=== PATIENT | female | born 1975 | race Two or more races ===

== ENCOUNTER 2025-02-27 15:10 | Emergency (ER) | payer OTHER ==
[~2025-02-27] VITALS: Ht 154.9 cm; Wt 77.1 kg
[2025-02-27 15:36] VITALS: BP 126/84; O2SAT 99
[2025-02-27] MEDS ORDERED: KETOROLAC TROMETHAMINE 60 MG VIAL IM ONE (16:30)
[2025-02-27 16:51] LABS: BASO % 0.5 % (0.1-1.2); EOS # 0.14 (0.04-0.54); EOS % 1.8 % (0.7-7.0); LYMPH # 3.36 (1.18-3.74); LYMPH % 43.0 % (19.3-53.1); MEAN PLATELET VOLUME 11.40 fl (9.4-12.4); MONO # 0.45 (0.24-0.82); MONO % 5.8 % (4.7-12.5); NEUT # 3.81 (1.56-6.13); NEUT % 48.6 % (34.0-71.1); RED CELL DISTRIBUTION WIDTH 14.2 % (11.6-14.4)
[2025-02-27 17:12] LABS: COVID-19 AG NEGATIVE (NEGATIVE)
[2025-02-27 17:28] LABS: ALT/SGPT 31.0 U/L (12-78); AST/SGOT 17.0 U/L (15-37); BILIRUBIN TOTAL 0.55 mg/dL (0.3-1.2); BUN CREA RATIO 17.0 (7.0-25.0); CREATININE SERUM 0.82 mg/dL (0.55-1.02); GFR 73.49; GLOBULINA 4.0 G/DL (2.4-3.5); GLUCOSE FASTING 88.0 mg/dL (65-100); OSMOLALITY SERUM 281.0 MOSM/KG (275-295)
[2025-02-27] MEDS ORDERED: NORFLEX100MG PO (18:43)
== END 2025-02-27 18:47 | disposition home or self-care (01) ==
LOC: ER 18:33
PROVIDERS: General Practice
DX: R07.89 Other chest pain (principal); Z20.822 Contact with and (suspected) exposure to COVID-19